=== PATIENT | female | born 1950 | race Two or more races ===

== ENCOUNTER 2022-05-17 17:10 | Emergency (ER) | payer MEDICARE ==
[~2022-05-17] VITALS: Ht 160 cm; Wt 54.9 kg
--- NOTE | 2022-05-17 17:30 | NUR ---
RECEIVED PT 71YRS FEMALE WALKING C/O GENRALIZED BODY PAIN AND SWALLEN IN BOTH LOWER EXTRMITY
--- NOTE | 2022-05-17 17:40 | NUR ---
SEEM BY DR. SAAVEDRA
[2022-05-17] MEDS ORDERED: HYDR-3976 PO (17:42)
--- NOTE | 2022-05-17 17:50 | NUR ---
BLOOD ROW BY LAB TACH NO DIFFECULTY
[2022-05-17] MEDS ORDERED: ONDANSETRON HCL/PF 4 MG/2 ML VIAL ONE (17:51)
[2022-05-17] MEDS: ONDANSETRON HCL/PF 4 MG/2 ML VIAL IVP ONE (17:58)
[2022-05-17 17:59] LABS: BASOPHILS % (AUTO) 0.3 % (0.0-2.0); EOSINOPHILS % (AUTO) 0.1 % (0.0-6.0); HEMATOCRIT 34 % (33-45); HEMOGLOBIN 11.3 g/dL (11.5-14.8); LYMPHOCYTES # (AUTO) 6.9 K/uL (0.8-4.8); LYMPHOCYTES % (AUTO) 56.2 % (20.0-44.0); MEAN CORPUSCULAR HGB CONC 34 g/dl (31.0-36.0); MEAN CORPUSCULAR VOLUME 88 fL (82-100); MONOCYTES # (AUTO) 1.9 K/uL (0.1-1.30); MONOCYTES % (AUTO) 15.8 % (2.0-12.0); NEUTROPHILS # (AUTO) 3.4 K/uL (1.8-8.9); NEUTROPHILS % (AUTO) 27.6 % (43.0-81.0); PLATELET COUNT (AUTO) 272 K/uL (150-450); WHITE BLOOD COUNT (AUTO) 12.2 K/uL (4.3-11.0)
--- NOTE | 2022-05-17 18:00 | NUR ---
TO CT SCAN OF ABDOMIE
[2022-05-17 18:08] LABS: CALCIUM, SERUM 8.7 mg/dL (8.5-10.1); CARBON DIOXIDE 22 mmol/L (21-32); CHLORIDE 96 mmol/L (98-107); CREATININE 0.6 mg/dL (0.6-1.3); GLUCOSE 110 mg/dL (74-106); POTASSIUM 3.8 mmol/L (3.5-5.1); SODIUM SERUM 127 mmol/L (136-145); UREA NITROGEN, BLOOD 10 mg/dL (7-18)
[2022-05-17 18:22] LABS: ALANINE AMINOTRANSFERASE 62 U/L (12-78); ALBUMIN 3.9 g/dL (3.4-5.0); ALKALINE PHOSPHATASE 198 U/L (46-116); ASPARTATE AMINOTRANSFERASE 68 U/L (15-37); BILIRUBIN,DIRECT 0.2 mg/dL (0.0-0.2); BILIRUBIN,TOTAL 0.7 mg/dL (0.2-1.0)
[2022-05-17 19:02] LABS: LYMPHOCYTES % (MANUAL) 32 % (16-48); MONOCYTES % (MANUAL) 14 % (0-11.0); NEUTROPHILS % (MANUAL) 54 (42-76)
--- NOTE | 2022-05-17 19:40 | NUR ---
covid swab collected sent to lab
--- NOTE | 2022-05-17 19:47 | NUR ---
move sheet submitted
--- NOTE | 2022-05-17 20:06 | NUR ---
Patient does not wish to proceed with medical care recommended by Dr. Antunez. Patient given information related to possible complications, up to and including , which could occur as a result of leaving the hospital at this time. Patient verbalizes understanding of risks involved due to leaving against medical advice. Patient has signed AMA form. IV catheter removed and pt ambulatory with stready gait.
[2022-05-17 20:08] VITALS: BP 118/72
== END 2022-05-17 20:09 | disposition left against medical advice (07) ==
LOC: ER 17:19
DX: I11.0 Hypertensive heart disease with heart failure (principal); I50.9 Heart failure, unspecified; M54.50 Low back pain, unspecified; G89.29 Other chronic pain; M79.7 Fibromyalgia; Z88.6 Allergy status to analgesic agent; Z88.2 Allergy status to sulfonamides; E87.1 Hypo-osmolality and hyponatremia; R74.01 Elevation of levels of liver transaminase levels; I45.2 Bifascicular block; R79.1 Abnormal coagulation profile; K76.0 Fatty (change of) liver, not elsewhere classified; K57.30 Diverticulosis of large intestine without perforation or abscess without bleeding; K42.9 Umbilical hernia without obstruction or gangrene; R00.0 Tachycardia, unspecified; Z20.822 Contact with and (suspected) exposure to COVID-19; Z53.29 Procedure and treatment not carried out because of patient's decision for other reasons
CPT/HCPCS: 36415; 71045; 74176; 80048; 80076; 83880; 84484; 85007; 85025; 85730; 87426; 93005; 96374; 99285; J2405; J7030; C9803